=== PATIENT | male | born 2005 | race Caucasian/White ===

== ENCOUNTER 2025-03-13 00:19 | Observation (INO) | payer OTHER ==
[2025-03-13] VITALS (14 sets, daily range): BP systolic 129–154; BP diastolic 60–79
[~2025-03-13] VITALS: Ht 182.9 cm; Wt 80.4 kg
[2025-03-13] MEDS ORDERED: MORPHINE SULFATE 10 MG/ML VIAL IV PRN ×2 (02:00→09:45)
[2025-03-13] MEDS ORDERED: KETOROLAC TROMETHAMINE 30 MG/ML VIAL IV PRN ×2 (02:00→09:45)
[2025-03-13] MEDS ORDERED: LACTATED RINGER'S 1,000 ML IV SCH ×2 (02:00→09:45)
--- NOTE | 2025-03-13 02:22 | NUR ---
PT RECEIVED TO ROOM 115 VIA WHEELCHAIR. PT ABLE TO AMBULATE TO STANDING SCALE FOR WEIGHT AND TO BED INDEPENDENTLY. PT HAS FAMILY AT BEDSIDE. ORIENTED X 4. REPORTS RLQ PAIN 2/10 AND DECLINES OFFER OF PAIN MED. LS. HRR. BTA, ABD SOFT, FLAT. ABD TENDER TO RIGHT SIDE. DENIES NAUSEA. LBM 2 DAYS AGO. NPO AT THIS TIME. DUE TO VOID. LAC IV INFUSING LR @ 100MLS/HR PER EMAR. CALL LIGHT WITHIN REACH.
--- NOTE | 2025-03-13 04:30 | NUR ---
PT ASLEEP, APPEARS COMFORTABLE.
[2025-03-13 05:12] LABS: BASOPHILS 0.5 % (0.2-1.2); EOSINOPHILS 0.7 % (0.8-7.0); LYMPHOCYTES 20.1 % (21.8-53.1); MCH 28.1 PG (25.7-32.2); MCHC 31.9 g/dL (32.3-36.5); MCV 88.2 fL (79.0-92.2); MONOCYTES 7.9 % (5.3-12.2); NEUTROPHILS 70.7 % (34.0-67.9); RBC 4.66 M/uL (4.63-6.08)
[2025-03-13 05:27] LABS: GLOMERULAR FILTRATION RATE,EST 112.0 mL/min (>60); UREA NITROGEN 13.0 mg/dL (7-18)
--- NOTE | 2025-03-13 05:57 | NUR ---
PT AWAKE, SLEEPING BETWEEN CARE. IV ATB STARTED PER EMAR-DOSE AND FREQUENCY VERIFIED W/ TELEPHARMACY BY JAS CHARGE NURSE. PT DENIES ANY OTHER NEEDS OR CONCERNS AT THIS TIME.
[2025-03-13] MEDS ORDERED: PIPERACILLIN/TAZOBACTAM 4.5 GM in SODIUM CHLORIDE 0.9% 100 ML IV SCH (06:00)
[2025-03-13] MEDS ORDERED: PIPERACILLIN/TAZOBACTAM 3.375 GM in SODIUM CHLORIDE 0.9% 100 ML IV SCH (06:00)
[2025-03-13] MEDS ORDERED: PIPERACILLIN/TAZOBACTAM 4.5 GM in SODIUM CHLORIDE 0.9% 100 ML IV ONE (06:00)
--- NOTE | 2025-03-13 06:17 | NUR ---
DR MONIQUE CALLED AND UPDATED ON PHARMACY'S DOSING PROTOCOL REGARDING ZOSYN DOSE AND pt LABS, ZOSYN ORDER OKAY'D BY . NO NEW ORDERS RECEIVED AT THIS TIME.
--- NOTE | 2025-03-13 07:02 | NUR ---
Pt report received from KARMEN Cameron. Pt is resting supine in bed, A&O, family member in room. Pt reports his pain is a 2 or 3 currently and tolerable. He denies needs at this time. White board updated. Call light in reach.
--- NOTE | 2025-03-13 07:39 | NUR ---
PATIENT WAS PROVIDED WITH A WARM WASHCLOTH. PATIENT IS IND WITH BRUSHING TEETH. PATIENT WAS ASSISTED SBA TO THE BATHROOM. PATIENT GIRLFREINMagaly TAYLOR IS AT BEDSIDE. PATIENT IS LAYING IN BED CALL LIGHT IS WITHIN REACH AND NO FURTHER NEEDS AT THIS TIME.
[2025-03-13] MEDS ORDERED: FAMOTIDINE 20 MG/ 2 ML VIAL IV SCH (09:00)
--- NOTE | 2025-03-13 09:03 | NUR ---
Advised that pt's wipe down was completed around 0800 hours this morning
[2025-03-13] MEDS ORDERED: SUCCINYLCHOLINE IN 0.9% NACL 200 MG/10 ML SYRINGE ONE (10:16)
[2025-03-13] MEDS ORDERED: ROCURONIUM BROMIDE 50 MG/5 ML SYR ONE (10:16)
[2025-03-13] MEDS ORDERED: LIDOCAINE HCL 2% 5 ML SDV ONE (10:16)
[2025-03-13] MEDS ORDERED: fentaNYL citrate 100 MCG/2 ML VIAL ONE (10:16)
[2025-03-13] MEDS ORDERED: KETOROLAC TROMETHAMINE 30 MG/ML VIAL ONE (10:16)
[2025-03-13] MEDS ORDERED: DEXAMETHASONE SOD PHOS 4 MG/ML VIAL ONE (10:16)
[2025-03-13] MEDS ORDERED: SUGAMMADEX SODIUM 200 MG/2 ML ML ONE (10:16)
[2025-03-13] MEDS ORDERED: ACETAMINOPHEN 1,000 MG/100 ML VIAL ONE (10:16)
[2025-03-13] MEDS ORDERED: MIDAZOLAM HCL 2 MG/2 ML VIAL ONE (10:17)
--- NOTE | 2025-03-13 10:28 | NUR ---
pilot safety inspector Tammy here to transfer pt to day surgery via bed. Pt is up to void and remove underwear.
--- NOTE | 2025-03-13 10:37 | NUR ---
Pt transferred to day surgery prior to completion of 1L LR bolus
[2025-03-13] MEDS ORDERED: LACTATED RINGER'S 1,000 ML IV ONE (10:45)
[2025-03-13] MEDS ORDERED: CEFAZOLIN SOD 1,000 MG/10 ML VIAL ONE (10:53)
[2025-03-13] MEDS ORDERED: HYDROmorphone HCL 1 MG/ML SYR IV PRN (11:00)
[2025-03-13] MEDS ORDERED: IBLOOD GLUCOSE TEST STRIP 1 EA TEST VI PRN (11:00)
[2025-03-13] MEDS ORDERED: CEFAZOLIN SODIUM 2 GM in SODIUM CHLORIDE 0.9% 100 ML IV ONE (11:00)
[2025-03-13] MEDS ORDERED: NALOXONE HCL 0.4 MG SYR IV PRN (11:00)
[2025-03-13] MEDS ORDERED: PROCHLORPERAZINE EDISYLATE 10 MG/2 ML VIAL IV PRN (11:00)
[2025-03-13] MEDS ORDERED: fentaNYL citrate 50 MCG/ML SDV IV PRN (11:00)
[2025-03-13] MEDS ORDERED: PERCOCET 7.5-31 EACH PO (11:43)
[2025-03-13] MEDS ORDERED: MOTRIN IB200 MG PO (11:44)
[2025-03-13] MEDS ORDERED: TYLENOL EXTRA500 MG PO (11:44)
--- NOTE | 2025-03-13 11:57 | NUR ---
03/13/25 1157 Lynsey Hernandez 1136- PT ARRIVES TO PACU WITH ORAL AIRWAY IN PLACE ON 6L OF O2. BREATHING IS EVEN AND UNLABORED. PT IS NONREACTIVE TO VERBAL AND TACTILE STIMULI. LAP SITES ASSESSED. PT ABDOMEN IS SOFT AND NONDISTENDED. ALL MONITORS PUT IN PLACE. VSS. LR INFUSING. 1147-PT LIFTS HEAD OFF OF THE PILLOW. ORAL AIRWAY REMOVED. PT OPENS HIS EYES. PT DENIES NAUSEA AND EASILY FALLS BACK TO SLEEP. 1149- O2 TURNED OFF AND REMOVED. PT DENIES NAUSEA. PT RESTING WITH EYES CLOSED. PT IS REORIENTED TO PACU BY RN. ALL QUESTIONS AND CONCERNS ANSWERED. 1155- PT RESTING WITH EYES CLOSED NO APPARENT SIGNS OF DISTRESS. PT GIGGLES OFF AND ON.
[2025-03-13] MEDS ORDERED: ACETAMINOPHEN 500 MG TAB PO PRN (12:00)
[2025-03-13] MEDS ORDERED: IBUPROFEN 600 MG TAB PO PRN (12:00)
[2025-03-13] MEDS ORDERED: OXYCODONE/APAP 7.5/325 TAB PO PRN (12:00)
--- NOTE | 2025-03-13 12:05 | NUR ---
Pt back to room from PACU. Pt report received from KARMEN Kamara. Pt is A&O, giggly, and denies pain and nausea. Pt given his copy of photos from Dr. Lai of procedure. Pt family is not present for report but arrives approximately 15 minutes later. VS stable, CPOX on. Pt provided with iced water, crackers, jello and a partial lunch tray delivered as well. Advised pt to take it very slowly and to use his call light if he experiences increased pain or nausea/vomiting. Lap sites are with minimal sanguinous drainage, intact. Call light in reach.
--- NOTE | 2025-03-13 12:46 | NUR ---
I was asked by RN Anh from PACU if I would call pharmacy and ask to have Ancef re-timed as they gave it in Pre-Op. Called and spoke with Cyndee in Pharmacy. She advised she will ask Wenceslao but that it was probably okay to give it at the scheduled time of 1400 hours when it's due. She will let me know if this is not okay after she speaks with Pharmacist Wenceslao.
--- NOTE | 2025-03-13 13:05 | NUR ---
In with pt for hourly VS. Pt is resting with eyes closed, supine in bed, breathing is regular, even, and non-labored. Lights are off, shades down, family at bedside. Pt awakens easily to voice. VSS although SBP is slightly high for a 19yo male (140). Pt has no c/o pain or nausea. He has had some sips of water. Call light in reach.
[2025-03-13] MEDS ORDERED: CEFAZOLIN SODIUM 2 GM in SODIUM CHLORIDE 0.9% 100 ML IV SCH (14:00)
--- NOTE | 2025-03-13 14:30 | NUR ---
In with pt as his mother was standing out in the hallway and stated he needs to use the toilet. Pt disconnected from CPOX, BP cuff, and SCD's. SBA as he transferred to the edge of the bed. Pt has no c/o dizziness, no light headedness, pain is 2 out of 10 currently. Pt ambulated into the bathroom with his IV pole to void. Encouraged him to use his call light when he is finished.
--- NOTE | 2025-03-13 14:48 | NUR ---
In with pt to make sure he tolerated toileting well. Pt is up ambulating about his room, states he feels good. He has eaten some toast and crackers and drank water, and has no c/o nausea. Pt's family in with pt. CPOX is disconnected while he is ambulating about the room. Pt declines ambulating in hallway. Denies further needs at this time.
--- NOTE | 2025-03-13 15:15 | NUR ---
In with pt for med administration per emar. Pt is sitting up in the chair, A&O, denies pain at this time, no nausea. Pt was able to void and has been ambulating around the room. Pt states he would like to go home now. Ancef started per emar. I will update Dr. Lai on pt's progress with meeting criteria and let him know that he wants to go home now.
[2025-03-13] MEDS ORDERED: SEVOFLURANE 250 ML BTL INH ONE (15:33)
--- NOTE | 2025-03-13 15:50 | NUR ---
PATIENT IS SITTING IN THE CHAIR. PATIENTS VITAL SIGNS AND I&OS WERE DONE. PATIENTS CALL LIGHT IS WITHIN REACH AND NO FURTHERS NEEDS AT THIS TIME.
--- NOTE | 2025-03-13 15:50 | NUR ---
Updated Dr. Lai [id number], on this pt's eagerness to go home and criteria goals being met. Verbal order "okay to discharge" this pt obtained. Dr. Lai had already entered a discharge order.
--- NOTE | 2025-03-13 16:09 | NUR ---
UPDATED PATIENT THAT WE ARE WAITING TO HEAR BACK FROM MD TO SEE IF OKAY TO DISCHARGE. AT THIS TIME PT REPORTS PAIN TOLERABLE 4/10, OFFERED MOTRIN AND PERCOCET AND PT DECLINES PERCOCET, PRN MOTRIN GIVEN - SEE JUN. PT UP AMBULATING IN ROOM. NO OTHER CONCERNS AT THIS TIME.
--- NOTE | 2025-03-13 17:12 | OR ---
[facility] [address], [place] [address] Signed DATE OF OPERATION: 03/13/2025 SURGEON: aNncy Monique MD PREOPERATIVE DIAGNOSIS: Acute appendicitis. POSTOPERATIVE DIAGNOSIS: Acute appendicitis. PROCEDURE: Laparoscopic appendectomy. ANESTHESIA: General endotracheal; Teddy Lu CRNA and local 10 mL of 0.25% Marcaine with epinephrine. INDICATION: This 19-year-old white young man who has had approximately 48 hours of increasing vague abdominal pain. He presents to the emergency room in [facility] in [place], [place], was evaluated thoroughly by Dr. Ramirez with clinical evidence suggestive of appendicitis and a CT scan affirming this. He is transferred by POV to [facility] approximately 3 a.m. anticipating surgery here. He has been fluid resuscitated given intravenous antibiotics and is now to undergo appendectomy preferably laparoscopic approach. The risk of bleeding, infection, failure of diagnosis, missed diagnosis, need for open procedure, need for other indicated procedures were reviewed with the patient and his family including his mother and aunt. They understand and wished to proceed. FINDINGS: Indeed the appendix was quite inflamed, but it was not suppurative and it was not perforated. A conventional anatomy was noted. Appendectomy was performed without problem. His gallbladder appeared normal as did the liver and the terminal ileum. DESCRIPTION OF PROCEDURE: The patient was brought to the operating room, given a general endotracheal anesthetic. Preoperative antibiotic Ancef and Flagyl were given in the operating room. Previous antibiotic had been included Zosyn. The abdomen was prepared with a chlorhexidine solution after clipping and draped sterilely and an infraumbilical incision was made using an open Myrna cannula technique. Pneumoperitoneum was achieved to a level of 14 mmHg of carbon dioxide gas. Intra-abdominal inspection showed no sign of ascites or Electronically Signed By: NANCY MONIQUE MD 03/13/25 1712 PATIENT NAME: SOCORRO SNIDER OPERATIVE REPORT DATE OF : 04 REPORT #: [id number] PHYSICIAN: NANCY MONIQUE MD PCP: OTHER PCP REPORT IS CONFIDENTIAL AND NOT TO BE RELEASED WITHOUT AUTHORIZATION [facility] [address], [place] [address] Signed carcinomatosis. The liver and gallbladder appeared normal. The appendix was initially obscured from view. An epigastric port was placed. The camera placed to that site and a right lower quadrant port 5 mm in size was placed using two hand manipulation, the cecum was elevated identifying well with very inflamed appendix without sign of suppuration or perforation. With various manipulations, the appendix was elevated and a window created between the appendix and the base of the cecum and transection undertaken with stapling device. Additional amount of cecum was excised in continuity with the appendix based on the angulation of the anatomy. The mesoappendix was thus easily isolated and divided with a single load of the Endo-VICKI stapling using vascular load as well. Appendix was withdrawn into the trocar at the umbilicus and extracted without touching the subcutaneous tissue. The appendix was off-loaded. Trocar replaced. Intra-abdominal inspection undertaken. There was essentially no bleeding or other problem with the staple lines. Irrigation was undertaken. Photographs were taken throughout. The trocars removed under direct visualization showing no sign of bleeding. The infraumbilical fascial incision reapproximated with interrupted 0 Vicryl suture. 10 mL of 0.25% Marcaine with epinephrine was injected locally. The skin was closed with interrupted 3-0 Vicryl and Steri-Strips were applied. He was extubated in the operating room, anticipating transfer to recovery room in good condition. MD SOURAV Grimm/MAYELINL /[id number] cc: Dr. Ramirez [facility] ER Copies: ~ Electronically Signed By: NANCY MONIQUE MD 03/13/25 1712 PATIENT NAME: SOCORRO SNIDER OPERATIVE REPORT DATE OF : 04 REPORT #: [id number] PHYSICIAN: NANCY MONIQUE MD PCP: OTHER PCP REPORT IS CONFIDENTIAL AND NOT TO BE RELEASED WITHOUT AUTHORIZATION
--- NOTE | 2025-03-13 17:12 | HP ---
[facility] [address] [place], [place] [address] Signed ADMISSION DATE: 03/13/2025 REASON FOR ADMISSION: Appendicitis. HISTORY OF PRESENT ILLNESS: This 19-year-old white man lives in [place]. He is accompanied by his aunt, his mother and his girlfriend at this time. He presented to the emergency room at in [place], was evaluated by Dr. Ramirez with complaints of vague abdominal pain. A CT scan was performed, which confirmed appendicitis. He was noted to have recently a white count of 7.45, hematocrit of 41.1 and platelets of 199,000. His Chem profile is normal at this point, though his potassium yesterday as it was relatively low. His symptoms began two days ago with vague abdominal pain, not associated with nausea or vomiting. He has had no fever or chills. He is feeling better since admission to the hospital with medication. REVIEW OF SYSTEMS: He denies any shortness of breath or chest pain. He has had no dysphagia or dysuria. Denies any hematuria or hematemesis. SOCIAL HISTORY: He is unmarried. [place]. 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 PHYSICAL EXAMINATION: GENERAL: Pleasant white man, who looks to be in no distress and with no sign of systemic toxicity. VITAL SIGNS: BMI is 24 kg/m2. Height is 6 feet 0, weight is 80 kg. HEENT: Trachea is midline. Mucous membranes are reasonably moist. CHEST: Clear. HEART: Regular without murmur. ABDOMEN: Nondistended. Rovsing sign is equivocal. He has mild tenderness in the right lower quadrant. EXTREMITIES: Showed no clubbing, cyanosis, or edema. LAB STUDIES: Are as noted previously. ASSESSMENT: The patient has clinical and radiographic evidence of acute appendicitis. I discussed Electronically Signed By: NANCY MONIQUE MD 03/13/25 1712 PATIENT NAME: SOCORRO SNIDER HISTORY AND PHYSICAL DATE OF : 04 REPORT #: [id number] PHYSICIAN: NANCY MONIQUE MD PCP: OTHER PCP REPORT IS CONFIDENTIAL AND NOT TO BE RELEASED WITHOUT AUTHORIZATION [facility] [address], [place] [address] Signed the pathophysiology of the problem with the patient and his family and would recommend laparoscopic appendectomy. An open procedure may be required. I did discuss nonoperative therapy, which in general is successful in about 50% of the people in about three months. An operative approach would be my recommendation, he agrees. The risk of bleeding, infection, need for open procedure, failure of diagnosis, missed diagnosis, and need for other indicated procedures was reviewed, they understand and wished to proceed. MD SOURAV Grimm/BRAULIO /[id number] cc: Dr. Ramirez at Copies: ~ Electronically Signed By: NANCY MONIQUE MD 03/13/25 1712 PATIENT NAME: SOCORRO SNIDER HISTORY AND PHYSICAL DATE OF : 04 REPORT #: [id number] PHYSICIAN: NANCY MONIQUE MD PCP: OTHER PCP REPORT IS CONFIDENTIAL AND NOT TO BE RELEASED WITHOUT AUTHORIZATION
--- NOTE | 2025-03-22 14:12 | PATH ---
[facility] [address] [place], [place] [address] Signed SPECIMEN(S): A APPENDIX SPECIMEN SOURCE: A. APPENDIX CLINICAL HISTORY: Acute appendicitis. Postop: Inflamed appendix. FINAL PATHOLOGIC DIAGNOSIS: Appendix, appendectomy - Morphologic features consistent with acute appendicitis. NA MICROSCOPIC EXAMINATION: Histologic sections of all submitted blocks are examined by light microscopy. These findings, together with the gross examination, support the pathologic diagnosis. GROSS DESCRIPTION: The specimen, labeled and designated "Nila Osorio " and designated on the requisition "appendix," is received in formalin and consists of Specimen: Appendix with mesoappendix. Dimensions: 8.2 x 1.0 cm. Serosa: Violaceous and mood with hyperemic subserosal vessels. Defect: Not grossly identified. Inking: Staple line is inked blue. Mucosa: Pale pink and finely granular with a red discoloration near the staple line. Fecalith: Not grossly identified. Additional: None. Medical Administrator sections are submitted in (A1). FB (under the direct supervision of a pathologist) The Gross Description was prepared using a voice recognition system. The report was reviewed for accuracy; however, sound-alike word errors, addition and/or deletions may occur. If there is any question about this report, please contact Client Services. ADDITIONAL NOTES: Immunohistochemical and/or in situ hybridization studies if performed in this case included appropriate positive controls that reacted as expected. This test was developed and its performance PATIENT NAME: SOCORRO OSORIO PATHOLOGY DATE OF : 04 REPORT #: [id number] PHYSICIAN: RUBEN RODRIGEZ PCP: OTHER PCP REPORT IS CONFIDENTIAL AND NOT TO BE RELEASED WITHOUT AUTHORIZATION [facility] [address] [facility] [place] [address] Signed characteristics determined by [facility]. It has not been cleared or approved by the U.S. Food and Drug Administration. The FDA has determined that such clearance or approval is not necessary. This test is used for clinical purposes. It should not be regarded as investigational or for research. [facility] is certified under the Clinical Laboratory Improvement Amendments of 1988 (CLIA) as qualified to perform high complexity clinical laboratory testing. PERFORMING LABORATORY: Technical component was performed by [facility], [address] [place] [address] (CLIA# [id number]). Professional interpretation was performed by [facility] [address] [place] [id number] Diagnostician: Aleyda Hansen MD Pathologist Electronically Signed 03/22/2025 Copies: ~ PATIENT NAME: SOCORRO OSORIO PATHOLOGY DATE OF : 04 REPORT #: [id number] PHYSICIAN: RUBEN PATHOLOGY PCP: OTHER PCP REPORT IS CONFIDENTIAL AND NOT TO BE RELEASED WITHOUT AUTHORIZATION
== END 2025-03-13 16:55 | disposition home or self-care (01) ==
LOC: MS 00:19
PROVIDERS: ADMIT Surgery; ATTEND Surgery
PROC: 0DTJ4ZZ Resection of Appendix, Percutaneous Endoscopic Approach (ICD-10-PCS; principal; 2025-03-13 10:12)
DX: K35.80 Unspecified acute appendicitis (principal); Z88.1 Allergy status to other antibiotic agents
CPT/HCPCS: 00840; 36415; 80048; 85025; 94762; 96365; 96366; 96375; A9270; G0378; J0131; J0330; J0688; J0690; J1100; J1885; J2003; J2250; J2405; J2543; J2704; J3010; J3490; J7121